=== PATIENT | male | born 1960 | race Caucasian/White ===

== ENCOUNTER 2017-07-09 08:51 | Inpatient (IN) | payer BC ==
[2017-05-30 12:06] VITALS: BMI 42.0
--- NOTE | 2017-05-30 12:32 | PAT Medication Instructions ---
Service Date May 30, 2017. Current Home Medication List Lorazepam (Ativan), 0.5 MG PO TID PRN for Anxiety Naproxen (Aleve), 220 MG PO Q12 PRN for Pain Trazodone Hcl (Trazodone), 50 MG PO HS PRN for Insomnia Medication Instructions For Your Scheduled Surgery - Hold the following medications 7 days prior to surgery: Naproxen (Aleve), 220 MG PO Q12 PRN for Pain - Take the following medications the morning of surgery with a sip of water: Lorazepam (Ativan), 0.5 MG PO TID PRN for Anxiety (if needed) - Take the following medications as scheduled the night before surgery: Trazodone Hcl (Trazodone), 50 MG PO HS PRN for Insomnia (if needed) Lorazepam (Ativan), 0.5 MG PO TID PRN for Anxiety (if needed) If you have any questions please call us at [phone] or [phone] or [phone]
--- NOTE | 2017-05-30 13:26 | DIAGNOSTIC IMAGING REPORT ---
CHEST 2 VIEWS ROUTINE CLINICAL HISTORY: PAT preoperative COMPARISON STUDY: No previous studies for comparison. FINDINGS: The bones soft tissues and hemidiaphragms are normal. The cardiomediastinal silhouette is normal. The lungs are clear. The pulmonary vasculature is normal. IMPRESSION: Negative chest. The above report was generated using voice recognition software. It may contain grammatical, syntax or spelling errors. Electronically signed by: Milo Mullen M.D. 05/30/2017 1:25 PM Dictated Date/Time: 05/30/2017 1:24 PM
[2017-05-30 14:30] LABS: BASO % 0.2 %; BASO ABS # 0.01 K/uL (0-0.2); EOS % 1.3 %; EOS ABS # 0.07 K/uL (0-0.5); HEMATOCRIT 40.9 % (42-52); HEMOGLOBIN 14.9 g/dL (14.0-18.0); IG# 0.02 K/uL (0.00-0.02); LYMPH % 37.5 %; MEAN CELL VOLUME 84.3 fL (80-100); MEAN CORPUSCULAR HEMOGLOBIN 30.7 pg (25-34); MEAN CORPUSCULAR HGB CONC 36.4 g/dl (32-36); MEAN PLATELET VOLUME 9.4 fL (7.4-10.4); MONO % 9.2 %; MONO ABS # 0.49 K/uL (0.11-0.59); NEUT % 51.4 %; NEUT ABS # 2.74 K/uL (1.4-6.5); PLATELET COUNT 244 K/uL (130-400); RED CELL DISTRIBUTION WIDTH CV 12.5 % (11.5-14.5); RED CELL DISTRIBUTION WIDTH SD 38.2 fL (36.4-46.3); WHITE BLOOD COUNT 5.33 K/uL (4.8-10.8)
[2017-05-30 14:36] LABS: ALBUMIN 3.3 gm/dl (3.4-5.0); CALCIUM 8.3 mg/dl (8.5-10.1); CREATININE 0.68 mg/dl (0.60-1.40); POTASSIUM 3.6 mmol/L (3.5-5.1)
[2017-05-30 14:38] LABS: PTT PATIENT 30.1 SECONDS (21.0-31.0)
[2017-05-31 06:43] LABS: HEMOGLOBIN A1C 5.8 % (4.5-5.6)
--- NOTE | 2017-06-18 16:53 | HISTORY & PHYSICAL EXAMINATION ---
DATE OF ADMISSION: 07/09/2017 CHIEF COMPLAINT: Right knee pain. HISTORY OF PRESENT ILLNESS: Mr. Ellison is a 56-year-old male with a multiple year history of right knee pain. The patient rates his pain an 8/10. He has pain with his daily activities. He has limited standing and walking tolerance. Pain is worse with weightbearing. The patient has had injections, arthroscopy, physical therapy, and NSAIDS without relief. He has failed conservative treatment and is scheduled for right knee replacement. PAST MEDICAL HISTORY: Obesity. He denies heart disease, diabetes or DVT. PAST SURGICAL HISTORY: Left TKA in 2016. SOCIAL HISTORY: The patient drinks 6 drinks per week. He denies tobacco use. He lives in a 2-danielle home. 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 FAMILY HISTORY: Negative for DVT. MEDICATIONS: Trazodone p.r.n. and Ativan p.r.n. ALLERGIES: KAYLA-D CAUSES HIVES. REVIEW OF SYSTEMS: See HPI. Ten other systems reviewed, all negative. PHYSICAL EXAMINATION: VITAL SIGNS: Height 5 feet 10 inches, weight 296 pounds, BMI 42. GENERAL: This is a well-developed, well-nourished male who is alert and oriented x3. Mood and affect are appropriate. HEENT: Normocephalic, atraumatic. Mucous membranes are moist and intact. NECK: Supple without lymphadenopathy. HEART: Regular rate and rhythm without murmurs, rubs or gallops. LUNGS: Clear to auscultation without wheezes or rhonchi. ABDOMEN: Soft and nontender. Bowel sounds are equal and active. EXTREMITIES: No ecchymosis, redness or warmth. He has mild varus deformity. Range of motion is decreased and reproduces pain in the joint. He has +1 laxity. He is neurovascularly intact with +5/5 strength. X-RAY EXAMINATION: AP and lateral views show joint space narrowing and osteophyte formation. IMPRESSION: Degenerative joint disease, right knee. PLAN: The patient will be admitted for a right total knee arthroplasty. We will plan on aspirin for DVT prophylaxis.
[~2017-07-09] VITALS: Ht 177.8 cm; Wt 134.4 kg
--- NOTE | 2017-07-09 08:05 | History & Physical Bridge Note ---
H&P Re-Evaluation Bridge Note: I have examined the patient, reviewed the History & Physical and in the interval since the performance of the History & Physical I have noted the following changes of clinical significance: No changes noted
[~2017-07-09 08:51] MED LIST: ACETAMINOPHEN 500 MG TAB PO SCH; BUPIVACAINE 0.25% 30 ML VIAL ONE; BUPIVACAINE 0.5 % 5 MG/1 ML PF 10ML VIAL ONE; CEFAZOLIN 3000MG IV PUSH 22.5 ML IV SCH; CeleBREX 200 MG CAP PO SCH; DEXAMETHASONE 4 MG TAB PO SCH; FAMOTIDINE 20 MG TAB PO SCH; FENTANYL CITRATE INJ 50 MCG/1 ML 2 ML VIAL ONE; GABAPENTIN 600 MG PO SCH; LACTATED RINGER'S 1000ML 1,000 ML IV SCH; LACTATED RINGER'S 1000ML 500 ML IV SCH; LORA-741 PO; METOCLOPRAMIDE HCL 10 MG TAB PO SCH; MIDAZOLAM HCL 1 MG/ML 2ML VIAL ONE; NAPR1TAB9 PO; PROPOFOL IV EMULSION 10 MG/ML 20 ML VIAL IV ONE; ROPIVACAINE 5MG/ML 30 ML 150 MG, BUPIVACAINE 0.5% MPF INJ 30 ML, EpINEphrine HCL INJ 0.... INFIL SCH; TRAZ50TA35 PO
[2017-07-09 09:15] VITALS: BP_SYST 172; BP_SYST 174; BP_DIAS 110; BP_DIAS 118; PULSE 75; TEMP 37; O2SAT 96; Ht 177.8 cm; Wt 134.4 kg
[2017-07-09] MEDS ORDERED: POVIDONE-IODINE OP SOLN 30 ML BTL ONE (10:54)
[2017-07-09] MEDS ORDERED: ORTHO JOINT ANESTHETIC ONE (10:54)
[2017-07-09] MEDS ORDERED: BACITRACIN 50000 UNIT VIAL ONE (10:54)
[2017-07-09] MEDS: TRANEXAMIC ACID INJ 1,000 MG x 2 Bags IV SCH ×4 (11:25→16:03)
[2017-07-09] MEDS ORDERED: MIDAZOLAM HCL 1 MG/ML 2ML VIAL ONE ×2 (11:57→12:00)
[2017-07-09] MEDS ORDERED: ONDANSETRON INJ 2 MG/ML 2 ML VIAL IV PRN ×2 (12:15→13:45)
[2017-07-09] MEDS ORDERED: KETOROLAC TROMETHAMINE 30 MG/ML VIAL IV. PRN (12:15)
[2017-07-09] MEDS ORDERED: EpHEDrine SULFATE INJ 50 MG/ML AMP IV PRN (12:15)
[2017-07-09] MEDS ORDERED: PHENYLEPHRINE 100MCG/ML 5ML SYR IV PRN (12:15)
[2017-07-09] MEDS ORDERED: ATROPINE SULFATE 0.1 MG/ML 5ML SYR IV PRN (12:15)
[2017-07-09] MEDS ORDERED: HYDROmorphone INJ 2 MG/ML SYR/VIAL IV PRN (12:15)
[2017-07-09] MEDS ORDERED: KETAMINE HCL INJ 50 MG/ML 10 ML VIAL ONE (12:16)
[2017-07-09] MEDS ORDERED: PROPOFOL IV EMULSION 10 MG/ML 20 ML VIAL IV ONE ×3 (12:16→12:25)
--- NOTE | 2017-07-09 12:57 | [facility] Operative Report ---
Operative Report Operative Date Jul 09, 2017. Pre-Operative Diagnosis Right Knee Degenterative Joint Disease Post-Operative Diagnosis Right Knee Degenterative Joint Disease Procedure(s) Performed Right Total Knee Arthroplasty utilizing journey to non-block total knee arthroplasty size 6 femur 5 tibia 13 mm probably [address] Lomas Hoistman Surgeon(s) Matias Canales PA-C Estimated Blood Loss 5CC Findings Patient presents with severe end-stage tricompartment degenerative joint disease no response to conservative therapy x-rays will be evidence of subchondral sclerosis osteophytes marginal osteophytes cystic formation Specimens A: Right Knee Bone and Tissue Anesthesia Type MAC Spinal Regional Complication(s) none Disposition Recovery Room / PACU Indications Patient presents with ongoing knee complaints not responsive to conservative therapy including physical therapy anti-inflammatories relative rest activity modification corticosteroid injections viscous supplementations x-rays will be evidence of subchondral sclerosis varus alignment cystic formation marginal osteophytes Description of Procedure After proper prepping and draping of the Right lower extremity anterior midline incision was made over the region of the extensor extensor mechanism after meticulous hemostasis was obtained and maintained in subcutaneous tissues a medial parapatellar incision was made The patella was subluxed lateralward the medial lateral gutter were cleaned from any hypertrophic synovitis and scar tissue of the distal femoral block was placed and the distal femoral osteotomy cut was made subsequently the chamfers anterior and posterior osteotomy cuts were made utilizing the 4-in-1 block the tibia was subsequently subluxed anteriorward medial and ateral meniscal remnants were excised in their entirety remnants of the anterior and posterior cruciate ligaments were excised in their entirety excellent exposure of the proximal tibia was obtained the tibial osteotomy guide was placed on the proximal tibial osteotomy cut was made once again the knee was irrigated with copious amounts of sterile saline solution the patella was subsequently everted lateralward thickened scar tissue around the patella was removed the patella was subsequently cut utilizing a freehand technique and was drilled prepared for final preparation and placement of patella socially flexion-extension gaps were checked and the equal and symmetric trials were placed to the appropriate femoral and tibial trials with poly-spacer being placed for equal flexion and extension gaps and full range of motion including extension to 0 and flexion to 140 the trial components after having been taken to recovery range of motion was subsequently removed meticulous hemostasis was obtained and maintained subsequently a knee block injection of joint cocktail including ropivacaine 0.5% 150 mg. Bupivacaine 0.5 % epinephrine 1-200,030 mL's toradol 30 mg dexamethasone 4 mg ketamine 10 mg clonidine 100 micrograms normal saline solution 30 mg was infiltrated into the soft tissues of the posterior knee medial lateral gutters and periosteal synovium special attention was paid to protect neurovascular structures at all times subsequently trial components having been removed the knee was irrigated with sterile saline solution. debris was removed the proximal tibia was subsequently prepared and was made ready for the placement of the tibial component tibial component was also cemented and tamped into position the femoral component was subsequently placed and cemented in the position the patellar component was subsequently cemented in position because hemostasis once again obtained and maintained wound having been thoroughly irrigated with debridement and debridement lavage was performed as well as a medial parapatellar incision closed with #1 Vicryl in interrupted fashion subcutaneous was closed with #2 Vicryl skin was closed with skin clips. PA-C was necessary for prepping and drapping as well as wound closure of deep fascia Sub cutaneous tissue and skin and was necessary for the case. A sterile compressive dressing was placed patient was taken to recovery in stable condition of report dictated by Abebe I attest to the content of the Intraoperative Record and any orders documented therein. Any exceptions are noted below. I attest to the content of the Intraoperative Record and any orders documented therein. Any exceptions are noted below.
[2017-07-09] MEDS ORDERED: BISACODYL 10 MG SUPP PR PRN (13:45)
[2017-07-09] MEDS ORDERED: OXYCODONE HCL IR 5 MG TAB (IMMEDIATE RELEASE) PO PRN (13:45)
[2017-07-09] MEDS ORDERED: MAGNESIUM HYDROXIDE SUSP 30 ML UDC PO PRN (13:45)
[2017-07-09] MEDS ORDERED: TAMSULOSIN HCL 0.4 MG CAP PO PRN (13:45)
[2017-07-09] MEDS ORDERED: MoRPHine SULFATE 4 MG/ML 1 ML CARP\\VIAL IV PRN (13:45)
[2017-07-09] MEDS ORDERED: TRAZODONE HCL 50 MG TAB PO PRN (13:45)
[2017-07-09] MEDS ORDERED: LORAZEPAM 0.5 MG TAB PO PRN (13:45)
[2017-07-09] MEDS ORDERED: ALUMINUM/MAGNESIUM/SIMETH (MAALOX MAX) 30 ML UDC PO PRN (13:45)
[2017-07-09] MEDS ORDERED: TRAMADOL HCL 50 MG TAB PO PRN (13:45)
--- NOTE | 2017-07-09 14:07 | DIAGNOSTIC IMAGING REPORT ---
R KNEE 1 OR 2 VIEWS ROUTINE CLINICAL HISTORY: 56 years-old Male presenting with AP/LATERAL IN PACU RIGHT KNEE. TECHNIQUE: Frontal and lateral views of the right knee were obtained. COMPARISON: None. FINDINGS: Postsurgical changes of total right knee arthroplasty with patellar resurfacing. Expected intra-articular and soft tissue emphysema. Surgical drain in place. No malalignment. No periprosthetic fracture. IMPRESSION: Expected postsurgical appearance status post total right knee arthroplasty with patellar resurfacing. Electronically signed by: Cuong Colon M.D. 07/09/2017 2:05 PM Dictated Date/Time: 07/09/2017 2:05 PM
--- NOTE | 2017-07-09 14:28 | Anesthesiology Progress Note ---
Anesthesia Post Op Note Date & Time Jul 09, 2017 at 14:27 Vital Signs Pain Intensity: 0 Vital Signs Past 12 Hours Date Time Temp Pulse Resp B/P (MAP) Pulse Ox O2 Delivery O2 Flow Rate FiO2 07/09/17 14:16 36.8 07/09/17 14:15 84 20 95 07/09/17 14:15 85 20 07/09/17 14:11 127/78 07/09/17 14:10 81 16 07/09/17 14:10 81 16 92 07/09/17 14:06 130/75 07/09/17 14:05 83 16 07/09/17 14:05 87 16 95 07/09/17 14:01 132/85 07/09/17 14:00 85 16 07/09/17 14:00 85 16 94 07/09/17 13:56 117/78 07/09/17 13:55 86 15 07/09/17 13:55 87 15 92 07/09/17 13:51 125/79 07/09/17 13:50 93 12 07/09/17 13:50 93 12 95 07/09/17 13:46 136/84 07/09/17 13:45 91 19 94 07/09/17 13:45 91 19 07/09/17 13:41 127/69 07/09/17 13:40 102 15 96 07/09/17 13:40 101 15 07/09/17 13:35 36.5 100 16 118/80 100 Room Air 07/09/17 09:15 37 75 20 174/110 96 Room Air 172/118 Notes Mental Status: alert / awake / arousable, participated in evaluation Pt Amnestic to Procedure: Yes Nausea / Vomiting: adequately controlled Pain: adequately controlled Airway Patency, RR, SpO2: stable & adequate BP & HR: stable & adequate Hydration State: stable & adequate Anesthetic Complications: no major complications apparent
[2017-07-09 14:30] VITALS: BP 143/96; PULSE 81; TEMP 36.8; O2SAT 96
[2017-07-09 15:12] VITALS: BP 158/95; PULSE 90; TEMP 36.8; O2SAT 97
[2017-07-09 15:38] VITALS: BP 136/87; PULSE 90; TEMP 36.8; O2SAT 95
[2017-07-09] MEDS: D5W AND 1/2NSS + 20MEQ KCL 1,000 ML IV SCH (16:04)
[2017-07-09] MEDS: FERROUS GLUCONATE 324 MG TAB PO SCH (17:43)
[2017-07-09 17:51] VITALS: BP 148/76; PULSE 104; TEMP 37.3; O2SAT 95
[2017-07-09] MEDS ORDERED: NURSING VERBAL MED ORDER ONE (18:00)
[2017-07-09] MEDS: CEFAZOLIN IV 2,000 MG in SYRINGE 0 ML IV SCH (20:39)
[2017-07-09] MEDS: DOCUSATE SODIUM 100 MG CAP PO SCH (20:43)
[2017-07-09] MEDS: HYDROCODONE/ACETAMIN 5/325MG TAB PO PRN ×2 (20:43→20:55)
[2017-07-09] MEDS: ASPIRIN 81 MG ECTAB PO SCH (20:44)
[2017-07-09] MEDS: CeleBREX 200 MG CAP PO SCH (20:44)
[2017-07-09] MEDS ORDERED: SENNA 8.6 MG TAB PO SCH (21:00)
[2017-07-09] MEDS ORDERED: ACETAMINOPHEN 500 MG TAB PO SCH (22:00)
[2017-07-09 23:42] VITALS: BP 135/79; PULSE 83; TEMP 36.8; O2SAT 96
[2017-07-10] MEDS: D5W AND 1/2NSS + 20MEQ KCL 1,000 ML IV SCH (01:21)
[2017-07-10 03:12] VITALS: BP 152/84; PULSE 76; TEMP 36.6; O2SAT 96
[2017-07-10] MEDS: CEFAZOLIN IV 2,000 MG in SYRINGE 0 ML IV SCH (03:30)
[2017-07-10 06:30] LABS: HEMATOCRIT 35.7 % (42-52); HEMOGLOBIN 12.6 g/dL (14.0-18.0); MEAN CELL VOLUME 84.6 fL (80-100); MEAN CORPUSCULAR HEMOGLOBIN 29.9 pg (25-34); MEAN CORPUSCULAR HGB CONC 35.3 g/dl (32-36); PLATELET COUNT 210 K/uL (130-400); RED CELL DISTRIBUTION WIDTH CV 13.2 % (11.5-14.5); RED CELL DISTRIBUTION WIDTH SD 40.3 fL (36.4-46.3); WHITE BLOOD COUNT 11.99 K/uL (4.8-10.8)
[2017-07-10 06:59] LABS: CALCIUM 8.3 mg/dl (8.5-10.1); CREATININE 0.77 mg/dl (0.60-1.40); POTASSIUM 3.9 mmol/L (3.5-5.1)
[2017-07-10] MEDS: FERROUS GLUCONATE 324 MG TAB PO SCH ×2 (08:06→12:20)
[2017-07-10] MEDS: HYDROCODONE/ACETAMIN 5/325MG TAB PO PRN (08:06)
[2017-07-10 08:09] VITALS: BP 157/93; PULSE 69; TEMP 36.7; O2SAT 96
--- NOTE | 2017-07-10 08:11 | Orthopedic Progress Note ---
Orthopedic Progress Note Date of Service Jul 10, 2017. Subjective Post OP Day: 1 Reports: feeling well, Denies: chest pain, SOB, nausea / vomiting, light headedness, calf pain Objective calves soft nontender, N/V intact, hip located, capillary refill less than 2 sec., dressing C/D/I, A&O x3, toes mobile Date Time Temp Pulse Resp B/P (MAP) Pulse Ox O2 Delivery O2 Flow Rate FiO2 07/10/17 03:12 36.6 76 16 152/84 (106) 96 Room Air 07/09/17 23:42 36.8 83 16 135/79 (97) 96 Room Air 07/09/17 23:35 Room Air 07/09/17 17:51 37.3 104 16 148/76 (100) 95 Room Air 07/09/17 15:38 36.8 90 16 136/87 (103) 95 Nasal Cannula 2.0 07/09/17 15:12 36.8 90 16 158/95 (116) 97 Nasal Cannula 2.0 07/09/17 14:30 36.8 81 16 143/96 (112) 96 Nasal Cannula 3.0 07/09/17 14:30 Nasal Cannula 3.0 07/09/17 14:30 Nasal Cannula 3.0 07/09/17 14:16 36.8 07/09/17 14:15 84 20 95 07/09/17 14:15 85 20 07/09/17 14:11 127/78 07/09/17 14:10 81 16 07/09/17 14:10 81 16 92 07/09/17 14:06 130/75 07/09/17 14:05 83 16 07/09/17 14:05 87 16 95 07/09/17 14:01 132/85 07/09/17 14:00 85 16 07/09/17 14:00 85 16 94 07/09/17 13:56 117/78 07/09/17 13:55 86 15 07/09/17 13:55 87 15 92 07/09/17 13:51 125/79 07/09/17 13:50 93 12 07/09/17 13:50 93 12 95 07/09/17 13:46 136/84 07/09/17 13:45 91 19 94 07/09/17 13:45 91 19 07/09/17 13:41 127/69 07/09/17 13:40 102 15 96 07/09/17 13:40 101 15 07/09/17 13:35 36.5 100 16 118/80 100 Room Air 07/09/17 09:15 37 75 20 174/110 96 Room Air 172/118 Laboratory Results 24 Hours: Test 07/10/17 06:15 Hematocrit 35.7 % Hemoglobin 12.6 g/dL Assessment & Plan Assessment: POD#1 SP RIGHT TKA Plan: PT/OT DVT PROPH- ASA 81MG BID PAIN MANAGEMENT DC PLANNING- DC HOME TODAY AFTER PT. KEEP DRAIN- PATIENT GOING TO [facility] TOMORROW FOR REMOVAL.
[2017-07-10] MEDS ORDERED: ACET-1256 PO (08:19)
[2017-07-10] MEDS ORDERED: ASPEC81 PO (08:19)
[2017-07-10] MEDS ORDERED: SENN-61 PO (08:19)
[2017-07-10] MEDS ORDERED: ONDA-170 PO (08:19)
[2017-07-10] MEDS ORDERED: RXC5 PO (08:19)
[2017-07-10] MEDS ORDERED: CLB200 PO (08:19)
--- NOTE | 2017-07-10 08:20 | Discharge Instructions ---
Discharge Instructions Date of Service Jul 10, 2017. Admission Reason for Admission: Right Knee Osteoarthritis Discharge Discharge Diagnosis / Problem: SP RIGHT TKA Discharge Goals Goal(s): Decrease discomfort, Improve function, Increase independence Activity Recommendations Activity Limitations: per Instructions/Follow-up section . Instructions / Follow-Up Instructions / Follow-Up ACTIVITY RECOMMENDATIONS: SELF CARE INSTRUCTIONS AFTER TOTAL KNEE REPLACEMENT A. You may need to continue a physical therapy program after discharge from the hospital. There are several options available to you. Your doctor will assist you in selecting the best one for you. 1. An out-patient facility 2 to 3 times a week for therapy or home therapy. 2. Continue working on all exercises taught to you in the hospital. Your goals should be to increase bending of your knee to 90 degrees and beyond and to fully straighten your knee. B. You may progress at your own pace from walking with a walker or crutches to a cane; then to no assistive devices. C. Make walking a part of your daily routine. Be up as much as comfortable with rest periods throughout the day. Rest with leg elevation is very important. Use the ice wrap frequently for the first 3-4 weeks. D. There are no restrictions on activities. 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 E. Wear the long elastic stockings (ROBERT hose) 20 hours a day for 2 weeks after surgery. They can be removed several times a day for laundering and for a bath. F. You may shower, no tub baths until cleared by your doctor. SPECIAL CARE INSTRUCTIONS: VERY IMPORTANT TO READ AND REVIEW A. There are a few signs you need to watch for after you are home. Call [facility] if you notice any of the followin. Increased severe knee pain. Some pain is expected especially when you exercise. 2. Increased swelling in your leg or knee; pain or swelling of the calf muscle in either lower leg. 3. Any fluid drainage from the incision. 4. Shortness of breath or chest pain. B. Please call [facility] at if you have any concerns or questions about your operation or recovery. The doctor or his nurse will return your call promptly. C. You must take antibiotics before dental work, bladder, bowel or other surgery. Your doctor will provide you with a permanent care to carry describing this precaution. IMPORTANT: * REMEMBER TO TAKE ASPIRIN, 81 MG, TWICE DAILY FOR 4 WEEKS UNLESS OTHERWISE DIRECTED. THIS IS YOUR BLOOD THINNER. * HIGH RISK PATIENTS MAY BE PRESCRIBED A STRONGER BLOOD THINNER. THIS WILL BE PROVIDED AT DISCHARGE. * CALL IF INCREASED PAIN, REDNESS, DRAINAGE OR FEVER GREATER THAT 101. * WEAR ROBERT HOSE 20 HOURS PER DAY FOR 2 WEEKS. * DERMABOND Prineo- This is a mesh tape dressing that is covered with glue. It should remain in place until the incision is properly healed, usually 10-14 days. This dressing is designed to naturally slough off. You may trim the excess mesh tape as it peels off. Incision may be briefly wet in a shower. Dry immediately by blotting with a clean, dry towel. Do not bath or swim until instructed by your doctor. Do not scratch, rub, or pick at the dressing. Do not apply any topical ointments or lotions until dressing is completely removed and/or instructed by your doctor. There may be a small piece of suture material at one end of your incision. Do not pull or trim this. If it is bothersome or catching on clothing, you may cover it with a band-aid. FOLLOW UP VISIT: If appointment is not already scheduled: Please call [facility] to make a follow-up appointment for 2 weeks after your surgery at . Current Hospital Diet Patient's current hospital diet: Regular Diet Discharge Diet Recommended Diet: Regular Diet Procedures Procedures Performed: Right Total Knee Arthroplasty utilizing journey to non-block total knee arthroplasty size 6 femur 5 tibia 13 mm probably 35 oval patella Pending Studies Studies pending at discharge: no Laboratory Results Hemoglobin A1c Test 05/30/17 12:39 Range/Units Estimated Average Glucose 120 mg/dl Hemoglobin A1c 5.8 H 4.5-5.6 % Medical Emergencies . Who to Call and When: Medical Emergencies: If at any time you feel your situation is an emergency, please call 911 immediately. . Non-Emergent Contact Non-Emergency issues call your: Surgeon . "Provider Documentation" section prepared by Janel Collins. .
[2017-07-10] MEDS: DOCUSATE SODIUM 100 MG CAP PO SCH (08:47)
[2017-07-10] MEDS: ASPIRIN 81 MG ECTAB PO SCH (08:47)
[2017-07-10] MEDS: CeleBREX 200 MG CAP PO SCH (08:48)
--- NOTE | 2017-07-10 08:57 | Anesthesiology Progress Note ---
Anesthesia Post Op Note Date & Time Jul 10, 2017 at 08:55 Vital Signs Pain Intensity: 2.0 Vital Signs Past 12 Hours Date Time Temp Pulse Resp B/P (MAP) Pulse Ox O2 Delivery O2 Flow Rate FiO2 07/10/17 08:09 36.7 69 16 157/93 (114) 96 Room Air 07/10/17 03:12 36.6 76 16 152/84 (106) 96 Room Air 07/09/17 23:42 36.8 83 16 135/79 (97) 96 Room Air 07/09/17 23:35 Room Air Notes Mental Status: alert / awake / arousable, participated in evaluation Pt Amnestic to Procedure: Yes Nausea / Vomiting: adequately controlled Pain: adequately controlled Airway Patency, RR, SpO2: stable & adequate BP & HR: stable & adequate Hydration State: stable & adequate Neuraxial Anesthesia: was administered, sensory block resolved Anesthetic Complications: no major complications apparent
[2017-07-10] MEDS ORDERED: MULTIVITAMIN TAB PO SCH (09:00)
[2017-07-10 11:10] VITALS: BP 140/81; PULSE 80; TEMP 36.8; O2SAT 96
[2017-07-10 12:25] VITALS: BP 140/81; PULSE 80; TEMP 36.8; O2SAT 96
== END 2017-07-10 14:00 | disposition home or self-care (01) | DRG 470 ==
LOC: C.ACU 08:51 → C.3E 10:16 → ENRESERV 14:12
PROVIDERS: ADMIT Orthopaedic Surgery; ATTEND Orthopaedic Surgery
PROC: 0SRT0J9 Replacement of Right Knee Joint, Femoral Surface with Synthetic Substitute, Cemented, Open Approach (ICD-10-PCS; principal; 2017-07-09 11:30)
DX: M17.11 Unilateral primary osteoarthritis, right knee (principal); Z68.41 Body mass index [BMI] 40.0-44.9, adult; E66.9 Obesity, unspecified; Z88.8 Allergy status to other drugs, medicaments and biological substances